=== PATIENT | female | born 1950 | race Caucasian/White ===

== ENCOUNTER → 2017-11-17 | Outpatient (CLI) | payer MEDICARE, OTHER ==
[~2017-11-17] MED LIST: Cleocin HCl150 MG PO; DIVA250EC PO; Fluticasone Pro15 GM; Keppra750 MG; OLAN5 SL; TRAZ150T57 PO
== END | disposition home or self-care (01) ==
LOC: LAB SHORT 13:16 → LAB EV 13:16
DX: L73.9 Follicular disorder, unspecified (principal)
CPT/HCPCS: 87070; 87205

== ENCOUNTER 2018-07-15 14:21 | Inpatient (IN) | payer MEDICARE, OTHER ==
[~2018-07-15] VITALS: Ht 157.5 cm; Wt 57.0 kg
[2018-07-15] MEDS ORDERED: DONE10 PO (14:39)
[2018-07-15] MEDS ORDERED: CITA20 PO (14:39)
[2018-07-15] MEDS ORDERED: OLAN10 PO (14:40)
[2018-07-15] MEDS ORDERED: TRAZ50 PO (14:40)
[2018-07-15 16:20] LABS: Source, Urine Catheter
[2018-07-15 16:24] LABS: Appearance, Urine Clear (Clear); Bilirubin, Urine Neg (Neg); Blood, Urine 1+ (Neg); Color, Urine Yellow (P-Yellow); Glucose Qualitative, Urine Neg (Neg); Ketones, Urine Neg (Neg); Leukocyte Esterase, Urine 2+ (Neg); Nitrite, Urine Neg (Neg); Protein, Urine 1+ (Neg); Urobilinogen, Urine NORM (Normal)
[2018-07-15 16:25] LABS: BASOPHILS ABSOLUTE AUTO 0.01 K/mm3 (0.00-0.23); BASOPHILS PERCENT AUTO 0 % (0-2); EOSINOPHILS PERCENT AUTO 0 % (0-6); Hematocrit 34.5 % (33.0-51.0); Hemoglobin 11.7 g/dL (11.5-16.0); IMMATURE GRAN ABSOLUTE AUTO 0.03 K/mm3 (0.00-0.10); IMMATURE GRAN PERCENT AUTO 1 % (0-1); LYMPHOCYTES PERCENT AUTO 13 % (21-46); MONOCYTES ABSOLUTE AUTO 0.78 K/mm3 (0.16-1.47); MONOCYTES PERCENT AUTO 12 % (4-13); Mean Corpuscular HGB 34.5 pg (26.0-34.0); Mean Corpuscular HGB Conc 33.9 g/dL (31.5-36.5); Mean Corpuscular Volume 102 fL (80-100); Mean Platelet Volume 10.7 fL (9.1-12.4); NEUTROPHILS ABSOLUTE AUTO 4.73 K/mm3 (1.96-9.15); NEUTROPHILS PERCENT AUTO 74 % (41-73); Platelet Count 161 K/mm3 (150-400); RDW Coefficient Variation 13.2 % (11.7-14.2); RDW Standard Deviation 49.9 fL (35.1-46.3); Red Blood Cell Count 3.39 M/mm3 (3.80-5.20); White Blood Cell Count 6.35 K/mm3 (4.00-11.30)
[2018-07-15 16:44] LABS: Alanine Aminotransfer (ALT/SGP 16 U/L (12-78); Albumin, Blood 2.9 g/dL (3.4-5.0); Alk Phos 40 U/L (50-136); Anion Gap 7 mmol/L (6-16); Aspartate Aminotrans (AST/SGOT 24 U/L (12-37); Bilirubin, Total 0.5 mg/dL (0.1-1.0); Blood Urea Nitrogen 17 mg/dL (8-24); Bun/Creatinine Ratio 26.3 (12.0-20.0); CO2, Blood 27 mmol/L (21-32); Calcium, Blood 8.3 mg/dL (8.5-10.1); Chloride, Blood 103 mmol/L (98-108); Creatinine, Blood 0.65 mg/dL (0.40-1.00); Globulin, Blood 2.8 g/dL (2.2-4.0); Glomerular Filtration Rate >60 (60-); Glucose, Blood 143 mg/dL (70-99); Potassium, Blood 3.9 mmol/L (3.5-5.5); Sodium, Blood 137 mmol/L (136-145); Total Protein, Blood 5.7 g/dL (6.4-8.2)
[2018-07-15 16:45] LABS: Bacteria Few /hpf; Squamous Epithelial Cells Few /hpf (Few); Transitional Epithelial Cells Few /hpf ({null, 0-Rare})
[2018-07-15] MEDS ORDERED: DIVA500ER PO (22:11)
--- NOTE | 2018-07-16 04:55 | NUR ---
SHIFT SUMMARY PT AWAKE ON/OFF T/O NIGHT & ATTEMPTING TO GET OOB, FOUND SITTING ON SIDE OF BED. BED ALARM ON. PT IS VERY CONFUSED, ALERT TO FAMLY & SELF ONLY. DOES NOT ANSWER QUESTIONS APPROPRIATELY OR FOLLOW DIRECTIONS. VSS. NO S/S SOB OR N/V. PT IS A 4/5 ON CNVI SCALE FOR GRIMACES, YELLING, RESTLESS & REPORTING PAIN IN R. LEG WHEN IT IS ASSISTED BACK INTO BED. MILLS IS PATENT & DRAININGE CLEAR YELLOW URINE. CALL LIGHT IS IN REACH & IS @BEDSIDE.
--- NOTE | 2018-07-16 17:40 | NUR ---
Initial Visit: Palliative Consult for POLST/AD and goals of care. Pt is A&O x 1 and is pleasantly confused. Her Jim present during visit. Pt does not appear to being experiencing pain at this time with a PAINAD score of 0/10. She appears relaxed with no signs of distress. Jim explains that Pt is of Baptist abbi and feels Pt would benefit from spiritual care. Pt lives at [facility] just moving to this facility 2 days ago. Pt was found on the floor by staff and taken to ED upon which a broken pelvis was identified. Jim reports the Pt has adequate support with the staff at home and himself. Discussed goals of care for Pt with Jim as her disease process takes her coarse. He explains his wishes for Pt to be a DNR with limited treatment. POLST for discussed and Jim is agreeable in competing form. Anwered questions and explained each section as he competed POLST. Jim reports only other concern is what the plan is for Pt. Instructed Jim plan will be based off of Hospitalist and physical therapy's recommendations. Physical therapy will determine if Pt should go to SNF for rehabilitation. Called and spoke Dr Mehta and informed him POLST form is complete. He reports that he will sign form in the AM. Spoke with Pt's nurse Stella and she reports no concerns at this time. Plan to remain available for therapeutic visits. Will place a spiritual care order for avian keeper visit.
--- NOTE | 2018-07-16 18:29 | NUR ---
PATIENT ONLY ORIENTED TO SELF AND . RADHA NARVAEZ FROM PALLIATIVE CARE CAME TO SPEAK WITH PATIENT AND FAMILY ABOUT PLST AND ADVANCED DIRECTIVES. PATIENT ATE ALL OF HER DINNER. WILL RETURN TONIGHT TO STAY WITH PATIENT. WORKING WELL WITH PHYSICAL THERAPY.
--- NOTE | 2018-07-17 04:13 | NUR ---
SHIFT SUMMARY PT SLEPT WELL T/O NIGHT W/ @BEDSIDE, ONLY SET BED ALARM OFF A COUPLE TIMES TONIGHT COMPARED TO LAST NIGHT. ALERT TO SELF & FAMILY, DOES NOT FOLLOW DIRECTIONS. DENIES PAIN YET SHOWS GRIMACING & YELLING WHEN R. LEG IS MOVED IN BED W/ASSISTANCE, MEDICATED 2X W/TYLENOL & TORODOL PER ORDERS. NO S/S OF SOB OR N/V. MILLS IS PATENT & DRAINING CLEAR NEIL URINE. CALL LIGHT IN REACH & BED IN LOWEST POSITION W/BED ALARM ON.
[2018-07-17 05:18] LABS: BASOPHILS ABSOLUTE AUTO 0.02 K/mm3 (0.00-0.23); BASOPHILS PERCENT AUTO 0 % (0-2); EOSINOPHILS ABSOLUTE AUTO 0.03 K/mm3 (0.00-0.68); EOSINOPHILS PERCENT AUTO 0 % (0-6); Hematocrit 31.7 % (33.0-51.0); Hemoglobin 10.4 g/dL (11.5-16.0); IMMATURE GRAN ABSOLUTE AUTO 0.03 K/mm3 (0.00-0.10); IMMATURE GRAN PERCENT AUTO 0 % (0-1); LYMPHOCYTES ABSOLUTE AUTO 0.99 K/mm3 (0.84-5.20); LYMPHOCYTES PERCENT AUTO 15 % (21-46); MONOCYTES ABSOLUTE AUTO 0.79 K/mm3 (0.16-1.47); MONOCYTES PERCENT AUTO 12 % (4-13); Mean Corpuscular HGB 33.4 pg (26.0-34.0); Mean Corpuscular HGB Conc 32.8 g/dL (31.5-36.5); Mean Corpuscular Volume 102 fL (80-100); Mean Platelet Volume 11.1 fL (9.1-12.4); NEUTROPHILS ABSOLUTE AUTO 4.91 K/mm3 (1.96-9.15); NEUTROPHILS PERCENT AUTO 73 % (41-73); Platelet Count 139 K/mm3 (150-400); RDW Coefficient Variation 13.5 % (11.7-14.2); RDW Standard Deviation 50.9 fL (35.1-46.3); Red Blood Cell Count 3.11 M/mm3 (3.80-5.20); White Blood Cell Count 6.77 K/mm3 (4.00-11.30)
[2018-07-17 05:44] LABS: Anion Gap 5 mmol/L (6-16); Blood Urea Nitrogen 19 mg/dL (8-24); Bun/Creatinine Ratio 33.3 (12.0-20.0); CO2, Blood 27 mmol/L (21-32); Calcium, Blood 7.6 mg/dL (8.5-10.1); Chloride, Blood 112 mmol/L (98-108); Creatinine, Blood 0.57 mg/dL (0.40-1.00); Glomerular Filtration Rate >60 (60-); Glucose, Blood 101 mg/dL (70-99); Potassium, Blood 3.6 mmol/L (3.5-5.5); Sodium, Blood 144 mmol/L (136-145)
--- NOTE | 2018-07-17 10:04 | NUR ---
I enetered patient's room and she greeted me with a big smile. Even after indroducing myself, patient was unclear as to who I was and why I was there. I asked her if she prayed to God and she said, "Yes." I asked her if she knew God loved her and she said, "Oh, yes," I asked asked her if I could pray for her and she said, "that would be great." I prayed and upon completion of the prayer she smiled and said, "Amen."
--- NOTE | 2018-07-17 17:03 | NUR ---
SHIFT SUMMARY- PT HAS HAD NO ACUTE CHANGES T/O THE SHIFT; AT THE URGING OF FAMILY PT SPOUSE HAS LEFT THE ROOM, HE STATED HE IS GOING OUT TO SOCIALIZE, HE FEELS VERY BAD ABOUT LEAVING THE PT SIDE, STATED HE WILL BE BACK TONIGHT ARROUND 10 PM. PT HAS CONSTANT TREMMORS THAT ARE MORE VISIBLE SOME TIMES THAN AT OTHERS. PT TOLD VISITORS THAT SHE WAS COLD AND THAT IS WHY SHE WAS SHAKING, CALLED MAINTANANCE TO TURN UP THE ROOM TEMP AND PROVIDED PT WITH ANOTHER WARM BLANKET. SPOKE TO DISCHARGE PLANNING, PLAN IS FOR PT TO RETURN TO [facility] UPON DISCHARGE. PT HAS DECLINED PAIN MEDICATION ALL SHIFT STATING SHE HAS NO PAIN.
[2018-07-18 05:19] LABS: Hematocrit 32.1 % (33.0-51.0); Hemoglobin 10.6 g/dL (11.5-16.0); Mean Corpuscular HGB 34.1 pg (26.0-34.0); Mean Corpuscular Volume 103 fL (80-100); Platelet Count 159 K/mm3 (150-400); RDW Coefficient Variation 13.3 % (11.7-14.2); RDW Standard Deviation 50.5 fL (35.1-46.3); Red Blood Cell Count 3.11 M/mm3 (3.80-5.20); White Blood Cell Count 7.75 K/mm3 (4.00-11.30)
--- NOTE | 2018-07-18 05:42 | NUR ---
SHIFT SUMMARY PT ORIENTED TO SELF. NOT GOOD AT FOLLOWING CUEING TO SWALLOW PILLS JUST HELD IN MOUTH. MULTIPLE ATTEMPTS TO GET OOB HERSELF. REORIENTED AND DIRECTED BACK INTO BED. SCREAMS OUT IN PAIN WHEN TURNING HER TO CLEAN HER UP FROM BM. MEDICATED PER EMAR X1. MILLS DRAINING. DOZED ON AND OFF T/O NOC. BED ALARM IN USE. DIDN'T SPEND THE WHOLE NIGHT SAYING HE "DIDN'T WANT TO SEE HER LIKE THIS". NO S/S OF PAIN EXCEPT WHEN TURNING TO CLEAN HER UP
--- NOTE | 2018-07-18 11:16 | NUR ---
ASSUMED CARE OF PT- *LATE ENTRY* PT SPOUSE WENT HOME IN THE MIDDLE OF THE NIGHT. PER REPORT FROM DYNAMITER HE STATED HE "CAN'T SEE HER LIKE THIS ANYMORE." PT SEEMS MORE AGITATED THIS MORNING WHEN COMPARED TO YESTERDAY. PT WAS TRANSFERED TO THE RECLINER EARLY IN THE MORNING PER HER REQUEST, SHE WAS SEARCHING FOR "ROBY" HER , ANYTIME SHE HEARS A MALE VOICE IT INCREASES HER AGITATION. CALLED DR MILES RECIEVED A NEW ORDER FOR IV ATIVAN AND HALDOL. ADMINISTERED THE LOWEST DOSE OF ATIVAN 0.5MG, IT APPEARS TO HAVE CALMED THE PT, TREMORS ARE REDUCED AND SHE NO LONGER APPEARS AGITATED. WILL CONTINUE TO MONITOR.
--- NOTE | 2018-07-18 14:06 | NUR ---
PHYSICAL THERAPY WORKED WITH THE PT- PT GOT TO THE EOB ON HER OWN AND STOOD WITH MINIMAL ASSIST FROM PHYSICAL THERAPY (PER REPORT) ONCE STANDING THE PT WAS NOT ABLE TO FOLLOW DIRECTIONS TO TTWB ON THE RIGHT LEG, SHE BECAME FRUSTRATED AND HEARD PEOPLE TALKING IN ANOTHER ROOM, THEN SHE DETERMINED THEY WERE SOMEONE SHE KNEW AND SHE NEEDED TO WALK OUT TO SEE THEM. UNABLE TO REDIRECT THE PT. PHYSICAL THERAPIST AND RN ASSISTED THE PT TO SIT AT THE EOB, SHE WAS CURSING AND IRRITATED. STAFF ASSISTED HER BACK TO LAYING IN THE BED WITH THE HOB ELEVATED AND THE PT IMEDIATELY QUIETED; CLOSED THE BLINDS AND TURNED OFF THE LIGHTS IN THE ROOM, FOR STIMULUS REDUCTION. TURNED ON MUSIC TO SOOTH, PT SEEMS CALM NOW. WILL CONTINUE TO MONITOR. PT HAS REPEATEDLY STATED T/O THE DAY NO PAIN.
--- NOTE | 2018-07-18 18:45 | NUR ---
SHIFT SUMMARY- PT JUST TRANSFERED BACK TO THE BED, SPOUSE AT THE BEDSIDE, PT CHANGED WELL. PLAN IS FOR PT TO DC BACK TO [facility] ON FRIDAY. PT STILL HAS IVF RUNNING AT 100ML/HR, MILLS PATENT AND DRAINING DARK NEIL URINE. PT PLEASENTLY CONFUSED AT THIS TIME. PT DENIES PAIN AT ALL TIMES T/O THE SHIFT. PT IS TTWB ON THE RIGHT SIDE, HOWEVER SHE DOES NOT SEEM TO UNDERSTAND INSTRUCTIONS TODAY.
--- NOTE | 2018-07-19 06:27 | NUR ---
SHIFT SUMMARY PT ORIENTED TO SELF ONLY. MUCH MORE CALM LAST NIGHT COMPARED TO THE PREVIOUS NIGHT. SLEPT SOUNDLY ONLY GETTING OOB ONCE LOOKING FOR HER . MILLS DRAINING. SHE WAS ABLE TO SLEEP THROUGH THE NIGHT. BED ALARM IN USE.
--- NOTE | 2018-07-19 19:41 | NUR ---
SHIFT SUMMARY- PT URINE OUTPUT HAS INCREASED AND THE PT HAS IVF RUNNING. SPOKE TO DR MILES THIS MORNING ABOUT DISCONTINUING THE IVF. REDUCED THE RATE TO 75ML/HR DC FLUIDS AT 0600 TOMORROW. PT PO INTAKE IS INCONSISTENT. PAIN MEDS REFUSED, PT DENIED PAIN ALL DAY LONG. PT CHANGED AND PLACED BACK INTO BED JUST BEFORE CHANGE OF SHIFT. SPOUSE AT THE BEDSIDE; HE PLANS TO GO HOME FOR THE NIGHT. PLAN IS FOR PT TO DC BACK TO [facility] TOMORROW WITH HOME HEALTH.
[2018-07-20 05:01] LABS: BASOPHILS ABSOLUTE AUTO 0.04 K/mm3 (0.00-0.23); BASOPHILS PERCENT AUTO 1 % (0-2); EOSINOPHILS ABSOLUTE AUTO 0.11 K/mm3 (0.00-0.68); EOSINOPHILS PERCENT AUTO 2 % (0-6); Hematocrit 31.9 % (33.0-51.0); Hemoglobin 10.8 g/dL (11.5-16.0); IMMATURE GRAN ABSOLUTE AUTO 0.02 K/mm3 (0.00-0.10); IMMATURE GRAN PERCENT AUTO 0 % (0-1); LYMPHOCYTES PERCENT AUTO 30 % (21-46); MONOCYTES ABSOLUTE AUTO 0.71 K/mm3 (0.16-1.47); MONOCYTES PERCENT AUTO 11 % (4-13); Mean Corpuscular HGB 34.7 pg (26.0-34.0); Mean Corpuscular HGB Conc 33.9 g/dL (31.5-36.5); Mean Corpuscular Volume 103 fL (80-100); Mean Platelet Volume 10.2 fL (9.1-12.4); NEUTROPHILS ABSOLUTE AUTO 3.53 K/mm3 (1.96-9.15); NEUTROPHILS PERCENT AUTO 56 % (41-73); Platelet Count 214 K/mm3 (150-400); RDW Coefficient Variation 13.4 % (11.7-14.2); RDW Standard Deviation 50.4 fL (35.1-46.3); Red Blood Cell Count 3.11 M/mm3 (3.80-5.20); White Blood Cell Count 6.31 K/mm3 (4.00-11.30)
[2018-07-20 05:19] LABS: Anion Gap 7 mmol/L (6-16); Blood Urea Nitrogen 8 mg/dL (8-24); Bun/Creatinine Ratio 17.2 (12.0-20.0); CO2, Blood 29 mmol/L (21-32); Calcium, Blood 7.9 mg/dL (8.5-10.1); Chloride, Blood 106 mmol/L (98-108); Creatinine, Blood 0.47 mg/dL (0.40-1.00); Glomerular Filtration Rate >60 (60-); Glucose, Blood 93 mg/dL (70-99); Potassium, Blood 3.3 mmol/L (3.5-5.5); Sodium, Blood 142 mmol/L (136-145)
--- NOTE | 2018-07-20 05:58 | NUR ---
SHIFT SUMMARY IV FLUIDS DC'D JUST BEFORE 0600 WHEN INFUSION WAS COMPLETE. PT DENIES PAIN. PT COOPERATES WITH NURSING STAFF PROVIDING CARE. PT HAS A HX OF BEING BRADYCARDIC, THIS IS HER BASELINE. FAMILY DECLINES PACEMAKER CONSULT. PT MAY DC TODAY TO [facility] IF NO CONCERNING CHANGE IN PHYSIOLOGICAL STATUS. MILLS CATHETER IS PATENT AND DRAINING. IV IS NOW SALINE LOCKED, FLUSHED WELL W/10ML NS. ROCEPHIN IV TX HAS BEEN DC'D 5 DAY TX HAS COMPLETED AND UTI IS RESOLVED. HCT, HGB, AND RBC ARE TRENDING DOWN (SEE LABS). WILL CONTINUE TO MONITOR.
[2018-07-20] MEDS ORDERED: ACET325 PO (12:46)
[2018-07-20] MEDS ORDERED: ASCO500 PO (12:47)
[2018-07-20] MEDS ORDERED: CALCIUM 500 +1 EAC3 PO (12:51)
[2018-07-20] MEDS ORDERED: FERSU90EL PO (12:53)
[2018-07-20] MEDS ORDERED: IBUP400 PO (12:55)
[2018-07-20] MEDS ORDERED: ONDA4 PO (12:56)
[2018-07-20] MEDS ORDERED: TRAM50 PO (12:57)
--- NOTE | 2018-07-20 14:29 | NUR ---
PATIENT DISCHARGE THE PATIENT WAS DISCHARGED TO [facility] AT THE SPOUSES REQUEST. THE PATIENT WAS TRANSPORTED TO [facility] VIA AMBULANCE AFTER REPORT WAS GIVEN TO BEN REEVES.
== END 2018-07-20 14:32 | DRG 536 ==
LOC: ER 14:21 → MEDS 17:13 → ENPENDDIS 07-20 14:29 → MEDS 07-20 14:32
PROVIDERS: Emergency Medicine; Family Medicine; ADMIT Family Medicine
DX: S32.512A Fracture of superior rim of left pubis, initial encounter for closed fracture (principal); S32.19XA Other fracture of sacrum, initial encounter for closed fracture; N39.0 Urinary tract infection, site not specified; F33.9 Major depressive disorder, recurrent, unspecified; W19.XXXA Unspecified fall, initial encounter; G30.9 Alzheimer's disease, unspecified; F02.80 Dementia in other diseases classified elsewhere, unspecified severity, without behavioral disturbance, psychotic disturbance, mood disturbance, and anxiety; R00.1 Bradycardia, unspecified; I95.9 Hypotension, unspecified
CPT/HCPCS: 36415; 51702; 72192; 73502; 80048; 80053; 81001; 85025; 85027; 87086; 90686; 93005; 93010; 96365; 96375; 97110; 97162; 97530; 99285-25; J0696; J1650; J1885; J2060; J3010; J7030

== ENCOUNTER 2018-07-28 16:49 | Inpatient (IN) | payer MEDICARE, OTHER ==
[~2018-07-28] VITALS: Ht 162.6 cm; Wt 62.2 kg
[~2018-07-28 16:49] MED LIST changes: +ACET325 PO; +ASCO500 PO; +CALCIUM 500 +1 EAC3 PO; +CITA20 PO; +DIVA500ER PO; +DONE10 PO; +FERSU90EL PO; +IBUP400 PO; +OLAN10 PO; +ONDA4 PO; +TRAM50 PO; +TRAZ50 PO
[2018-07-28 17:36] LABS: BASOPHILS ABSOLUTE AUTO 0.03 K/mm3 (0.00-0.23); BASOPHILS PERCENT AUTO 0 % (0-2); EOSINOPHILS PERCENT AUTO 0 % (0-6); Hematocrit 33.1 % (33.0-51.0); Hemoglobin 10.5 g/dL (11.5-16.0); IMMATURE GRAN ABSOLUTE AUTO 0.07 K/mm3 (0.00-0.10); IMMATURE GRAN PERCENT AUTO 1 % (0-1); LYMPHOCYTES PERCENT AUTO 11 % (21-46); MONOCYTES ABSOLUTE AUTO 0.79 K/mm3 (0.16-1.47); MONOCYTES PERCENT AUTO 9 % (4-13); Mean Corpuscular HGB 33.9 pg (26.0-34.0); Mean Corpuscular HGB Conc 31.7 g/dL (31.5-36.5); Mean Platelet Volume 10.3 fL (9.1-12.4); NEUTROPHILS ABSOLUTE AUTO 7.42 K/mm3 (1.96-9.15); NEUTROPHILS PERCENT AUTO 80 % (41-73); Platelet Count 201 K/mm3 (150-400); RDW Coefficient Variation 14.6 % (11.7-14.2); White Blood Cell Count 9.31 K/mm3 (4.00-11.30)
[2018-07-28 17:40] LABS: Calcium, Ionized (POC) 0.98 mmol/L (1.10-1.46); Chloride (POC) 109 mmol/L (98-108); Creatinine (POC) 7.9 mg/dL (0.6-1.0); Glucose (ISTAT POC) 118 mg/dL (70-99); Hemoglobin (POC) 11.2 g/dL (12.0-16.0); Potassium (POC) 5.6 mmol/L (3.5-5.5); Sodium (POC) 143 mmol/L (135-148); Total CO2 (POC) 19 mmol/L (21-32)
[2018-07-28 17:47] LABS: Mean Corpuscular Volume 107 fL (80-100)
[2018-07-28 17:50] LABS: International Normalized Ratio 1.04
[2018-07-28 18:21] LABS: Albumin, Blood 2.2 g/dL (3.4-5.0); Albumin/Globulin Ratio 0.5 (0.8-1.8); Bilirubin, Total 0.4 mg/dL (0.1-1.0); Bun/Creatinine Ratio 20.1 (12.0-20.0); Calcium, Blood 8.1 mg/dL (8.5-10.1); Creatinine, Blood 7.51 mg/dL (0.40-1.00); Globulin, Blood 4.2 g/dL (2.2-4.0); Potassium, Blood 5.7 mmol/L (3.5-5.5); Total Protein, Blood 6.4 g/dL (6.4-8.2)
[2018-07-28] MEDS ORDERED: TRAZ50 PO (22:39)
[2018-07-28 22:44] LABS: Hematocrit 32.8 % (33.0-51.0); Hemoglobin 10.5 g/dL (11.5-16.0)
[2018-07-28 23:07] LABS: CPK Creatine Kinase 155 U/L (26-193); Magnesium, Blood 3.6 mg/dL (1.6-2.4); Valproic Acid 86.5 ug/mL (50.0-100.0)
[2018-07-28 23:17] LABS: Phosphorus, Blood 5.6 mg/dL (2.5-4.9)
[2018-07-29 04:55] LABS: Hematocrit 33.1 % (33.0-51.0); Hemoglobin 10.3 g/dL (11.5-16.0)
[2018-07-29 05:17] LABS: Magnesium, Blood 3.6 mg/dL (1.6-2.4)
[2018-07-29 05:30] LABS: Albumin/Globulin Ratio 0.5 (0.8-1.8); Bilirubin, Total 0.5 mg/dL (0.1-1.0); Bun/Creatinine Ratio 30.8 (12.0-20.0); Creatinine, Blood 3.57 mg/dL (0.40-1.00); Globulin, Blood 4.1 g/dL (2.2-4.0); Total Protein, Blood 6.1 g/dL (6.4-8.2)
--- NOTE | 2018-07-29 06:22 | NUR ---
SHIFT SUMMARY PT ONLY RESPONDS TO PAINFUL STIMULI. PT DIFFICULT TO UNDERSTAND. SPEECH IS GARBLED. PT HAS HX OF LATE DEMENTIA AND IS CONFUSED AT BASELINE. PT HAS NOT HAD BM SINCE SHE WAS ADMITTED TO THE FLOOR. PER REPORT PT HAD GELATIN DARK RED STOOL. PT GRIMMACES DURING REPOSITIONING, BUT OTHER THAN MOVEMENT SHOWS NO SIGNS OF PAIN. HR IS SB WITH A RATE INTHE 50-60'S. MILLS PATENT AND DRAINING. PT REPOSITIONED Q2H. VS STABLE. WILL CONTINUE TO MONITOR AND REPORT TO ONCOMING RN. CALL LIGHT IN REACH.
--- NOTE | 2018-07-29 08:20 | NUR ---
INITIAL ASSESSMENT: Pt lying in bed. Does not respond to verbal stimulus or touch. Only resonds to painful stimulus. Pt stated "ouch" and had garbaled speech with sternal rub. Pt did open her L eye slightly. R eye was opened by RN, both pupils sluggish. Oral care attempted but pt gritted teeth shut. Does not follow directions or commands. VSS. Bed alarm on and Call light in reach. Will Continue to monitor.
[2018-07-29 08:48] LABS: Source, Urine Catheter
[2018-07-29 08:52] LABS: Bilirubin, Urine Neg (Neg); Blood, Urine 4+ (Neg); Glucose Qualitative, Urine Neg (Neg); Ketones, Urine Neg (Neg); Leukocyte Esterase, Urine 3+ (Neg); Nitrite, Urine Neg (Neg); Protein, Urine 2+ (Neg); Urobilinogen, Urine NORM (Normal)
[2018-07-29 08:53] LABS: Appearance, Urine Hazy (Clear); Color, Urine Yellow (P-Yellow)
[2018-07-29 09:11] LABS: Red Blood Cells, Urine 50-100 /hpf (0-2); White Blood Cells, Urine TNTC /hpf (0-5)
[2018-07-29 09:12] LABS: Bacteria Mod /hpf; Mucus Light (0-Heavy); Squamous Epithelial Cells Few /hpf (Few)
[2018-07-29 14:14] LABS: Hematocrit 31.7 % (33.0-51.0); Hemoglobin 10.1 g/dL (11.5-16.0)
[2018-07-29 14:28] LABS: Albumin, Blood 2.1 g/dL (3.4-5.0); Anion Gap 10 mmol/L (6-16); Blood Urea Nitrogen 87 mg/dL (8-24); Bun/Creatinine Ratio 43.3 (12.0-20.0); CO2, Blood 24 mmol/L (21-32); Calcium, Blood 8.1 mg/dL (8.5-10.1); Chloride, Blood 119 mmol/L (98-108); Creatinine, Blood 2.01 mg/dL (0.40-1.00); Glomerular Filtration Rate 26 (60-); Glucose, Blood 116 mg/dL (70-99); Phosphorus, Blood 3.3 mg/dL (2.5-4.9); Potassium, Blood 3.4 mmol/L (3.5-5.5); Sodium, Blood 153 mmol/L (136-145)
--- NOTE | 2018-07-29 18:23 | NUR ---
shift summary: Pt laying in bed at this time. Seems to have become slightly more alert throughout the shift, but very disoriented. Pt has hx of dementia. Pt sleeps until woken up by touch. When pt is repositioned she yells out non-sinsical words. Pt does not follow directions. Pt had small, black unformed loose stool at end of shift that had GI bleed smell. Mepalex dressing on coccyx clean and intact. HR has remained in NSR this shift. IVF running per orders and protinix gtt running per orders. Swelling to LLE shows no changes this shift. See imaging report for LLE ultrasound results. has been in Pt's room most of the shift. He denies questions. will report to night rn.
[2018-07-29 18:53] LABS: Hematocrit 29.1 % (33.0-51.0); Hemoglobin 9.4 g/dL (11.5-16.0)
[2018-07-29 23:38] LABS: Stool Occult Blood Guaiac 1 Pos (Neg)
--- NOTE | 2018-07-30 05:01 | NUR ---
SHIFT SUMMARY PT LETHARGIC, DIFFICULT TO AROUSE, WAKES TO PAINFUL STIMULI AND ASKS "WHY" WHEN TRYING TO WAKE PT FOR ASSESSMENTS. PT FULLY WAKES DURING Q2H REPOSITIONG AND YELLS OUT CURSE WORDS THEN QUICKLY QUIETS AND RETURNS TO SLEEPING. MONITOR SHOWS SB/NSR, HR 40'S-60'S THIS SHIFT. LUNG SOUNDS CLEAR, DIM IN BASES. SPO2 > 92% ON RA. VSS. MILLS PATENT AND DRAINING CLEAR YELLOW URINE. ATTENDS IN PLACE FOR INCONTINENT STOOL. ONE BROWN UNFORMED SMEAR THIS SHIFT. ROBSON CARE AND ATTENDS CHANGE PROVIDED. PT COCCYX RED, MEPILEX IN PLACE, OTHERWISE SKIN C/D/I. PT'S L LEG SWOLLEN T/O FROM THIGH DOWN TO TOES. 2 PIV'S. PROTONIX GTT AND D5W GTT INFUSING PER ORDERS. BED IN LOWEST POSITION, SIDE RAILS UP X2, CALL LIGHT IN REACH. BED ALARM ON. WILL CONTINUE TO MONITOR AND PROVIDE CARE UNTIL REPORT OFF TO DAY SHIFT RN.
[2018-07-30 09:04] LABS: Hematocrit 31.5 % (33.0-51.0); Hemoglobin 9.9 g/dL (11.5-16.0); Mean Corpuscular HGB Conc 31.4 g/dL (31.5-36.5); Mean Corpuscular Volume 108 fL (80-100); Mean Platelet Volume 10.4 fL (9.1-12.4); Platelet Count 142 K/mm3 (150-400); RDW Coefficient Variation 14.2 % (11.7-14.2); RDW Standard Deviation 56.4 fL (35.1-46.3); Red Blood Cell Count 2.91 M/mm3 (3.80-5.20)
[2018-07-30 09:27] LABS: Anion Gap 7 mmol/L (6-16); Blood Urea Nitrogen 53 mg/dL (8-24); Bun/Creatinine Ratio 53.5 (12.0-20.0); CO2, Blood 27 mmol/L (21-32); Calcium, Blood 8.1 mg/dL (8.5-10.1); Chloride, Blood 116 mmol/L (98-108); Creatinine, Blood 0.99 mg/dL (0.40-1.00); Glomerular Filtration Rate 59 (60-); Glucose, Blood 116 mg/dL (70-99); Potassium, Blood 3.2 mmol/L (3.5-5.5); Sodium, Blood 150 mmol/L (136-145)
--- NOTE | 2018-07-30 10:11 | NUR ---
Assumed Care: Assumed care of pt at approx 0700. VSS. In no apparent sign of distress, but pt does appear very ill. Pt is very lethargic and responds to painful stimuli only. at bedside and states that the pt is confused at baseline. Pt does not respond to questions, and mumbles at times. Pt requiring full care at this time. See shift assessment for detailed assessment. Dr. Amado at bedside this AM, and provided update and potential prognosis of pt to . Palliative care on board. Pt currently resting in bed with call light within reach. Pt does not have any apparent unmet needs at this time. Will continue to monitor.
--- NOTE | 2018-07-30 15:06 | NUR ---
Pt gone now to and accompanied by HC RN.
--- NOTE | 2018-07-30 15:09 | NUR ---
Spiritual care visit conducted. Patient was sleeping in bed but her Jim was present and quickly wlked me outside the room because he wanted to talk in private. Jim explained patient's medical history and abbi history and the procedure that was forthcoming. Jim explained the pain that was connected to making medical decisions and what he saw the goals were. I listened empathically, normalized patient's experience and affirmed his goals and thought process regarding his 's care. As we were talking his was being preped to go for surgery. I provided a hug and a prayer as they left. Jim thanked me.
--- NOTE | 2018-07-30 17:01 | NUR ---
Shift Summary Pt now returned from and has two venous groin sites that do not show any s/sx of bleed or hematoma. No changes in mentation and no significant changes since initial shift assessment. Two IVC filters placed to LLE. Pt turned approx every two hours while in the room. Dr. Saeed at bedside after pt returned from and plan is to possibly scope if electrolytes stabalize more. Pt currently resting in bed with call light within reach. Family at bedside. Denies any further questions, complaints or requests at this time. Will continue to monitor until report is given to иван CONTRERAS.
--- NOTE | 2018-07-30 18:53 | NUR ---
Asked by RN to meet with dtr at bedside. She was tearful and expressed understanding of pt's dire medical state. She was deeply appreciative of prayer and spiritual counselor marriage and family. She asked me to meet with her father in [facility] waiting area. Spouse, Jim, had just spent time in prayer with family residential caregiver. He expressed a deep and complete abbi in the goodness of God. Jim feels well-supported by his residential caregiver and latter-day family. That said, spouse and family desires continued spiritual support. Advised chaplains are always available.
[2018-07-31 04:05] LABS: Hematocrit 33.8 % (33.0-51.0); Hemoglobin 10.4 g/dL (11.5-16.0); Mean Corpuscular HGB 34.1 pg (26.0-34.0); Mean Corpuscular HGB Conc 30.8 g/dL (31.5-36.5); Platelet Count 101 K/mm3 (150-400); RDW Coefficient Variation 14.2 % (11.7-14.2); RDW Standard Deviation 58.2 fL (35.1-46.3); Red Blood Cell Count 3.05 M/mm3 (3.80-5.20)
[2018-07-31 04:06] LABS: Mean Corpuscular Volume 111 fL (80-100)
[2018-07-31 04:25] LABS: Anion Gap 7 mmol/L (6-16); Blood Urea Nitrogen 34 mg/dL (8-24); Bun/Creatinine Ratio 44.7 (12.0-20.0); CO2, Blood 29 mmol/L (21-32); Chloride, Blood 114 mmol/L (98-108); Creatinine, Blood 0.76 mg/dL (0.40-1.00); Glomerular Filtration Rate >60 (60-); Glucose, Blood 93 mg/dL (70-99); Phosphorus, Blood 2.2 mg/dL (2.5-4.9); Potassium, Blood 3.7 mmol/L (3.5-5.5); Sodium, Blood 150 mmol/L (136-145)
--- NOTE | 2018-07-31 05:02 | NUR ---
SHIFT SUMMARY PT CONTINUES TO BE LETHARGIC, WAKES TO PAINFUL STIMULI, OPENING L EYE ONLY. PT ON BEDREST, CRIES OUT W/ Q2H REPOSITIONING, OTHERWISE CALM AND QUIET. LUNG SOUNDS CLEAR T/O, SPO2 > 92% ON RA. MONITOR SHOWS SB, HR 40'S-60'S. MILLS CATH PATENT AND DRAINING CLEAR YELLOW URINE. L LEG DVT. 2 PINPOINT SURGICAL SITES FOR IVC FILTER PLACEMENT WNL. D5 GTT CONTINUES TO INFUSE PER ORDERS. WILL CONTINUE TO MONITOR AND PROVIDE CARE UNTIL REPORT OFF TO DAY SHIFT RN.
--- NOTE | 2018-07-31 08:08 | NUR ---
Assumed Care: Assumed care of pt at approx 0700. VSS. In no apparent sign of distress. Pt is now responding to verbal stimuli, but is still very lethargic. Requiring full care. Confused. See shift assessment for detailed assessment. No family at bedside at this time. Pt currently resting in bed with call light within reach. Will continue to monitor.
--- NOTE | 2018-07-31 11:37 | NUR ---
Spiritual care visit conducted. Patient was resting comfortably when I entered the room. Patient's , Jim, led me outside the patient's room into the hallway to talk. Since therapeutic alliance was already established in a prior visit, Jim shared what he understood from a medical standpoint about his 's condition and his concerns for best care for her. He also shared his personal struggles as well as the strength and hope connected to his abbi. I listened empthaically, provided guidance on how to most be able to reach his goals for his 's care, I reinforced helpful attitudes and practices, I provided pastoral direction and prayer. Patient's responded well to all intervention and showed signs of elevated peace and renwed abbi.
--- NOTE | 2018-07-31 18:41 | NUR ---
Shift Summary No acute changes since initial shift assessment. VSS. In no apparent sign of distress. No changes in mentation. Plan is for pt to have an EEG done tomorrow. No s/sx of pain or discomfort. No changes to groin sites. Pt has been turned approx Q2H. Pt has had an uneventful day. Pt currently resting in bed with call light within reach. Denies any further questions, complaints or requests at this time. Will continue to monitor until report is given to иван CONTRERAS.
--- NOTE | 2018-07-31 19:30 | NUR ---
ASSUMED CARE PT SLEEPING IN ROOM COMFORTABLY. REPORT FROM DAY SHIFT IS PT DOES NOT RESPOND MUCH TO VERBAL STIMULI. IS MOSTLY NONVERBAL, UNLESS BEING REPOSITIONED. PT IS SET TO HAVE EEG TOMORROW MORNING. HAIR HAS BEEN WASHED AND IS AIR DRYING. RESP EVEN UNLABORED ON RA. PT HAD RECENT PELVIC FX, AND IS Q2H TURNS. SKIW IN PWD. ORAL CARE HAS BEEN PERFORMED. MILLS IN PLACE, PATENT AND DRAINING CLEAR YELLOW URINE. IVF INFUDING IN PIV. CALL LIGHT IS WITHIN REACH. BED ALARM ON FOR SAFETY.
[2018-08-01 05:22] LABS: Hematocrit 28.7 % (33.0-51.0); Hemoglobin 9.1 g/dL (11.5-16.0); Mean Corpuscular HGB 34.1 pg (26.0-34.0); Mean Corpuscular HGB Conc 31.7 g/dL (31.5-36.5); Mean Platelet Volume 11.1 fL (9.1-12.4); NRBC ABSOLUTE 0.03 K/mm3 (0.00-0.02); NRBC Auto 0.3 /100 WBC (0.0-0.2); Platelet Count 115 K/mm3 (150-400); RDW Coefficient Variation 13.8 % (11.7-14.2); RDW Standard Deviation 55.2 fL (35.1-46.3); Red Blood Cell Count 2.67 M/mm3 (3.80-5.20)
[2018-08-01 05:23] LABS: Mean Corpuscular Volume 108 fL (80-100)
[2018-08-01 05:40] LABS: Anion Gap 6 mmol/L (6-16); Blood Urea Nitrogen 17 mg/dL (8-24); Bun/Creatinine Ratio 29.5 (12.0-20.0); CO2, Blood 30 mmol/L (21-32); Calcium, Blood 7.8 mg/dL (8.5-10.1); Chloride, Blood 109 mmol/L (98-108); Creatinine, Blood 0.58 mg/dL (0.40-1.00); Glomerular Filtration Rate >60 (60-); Glucose, Blood 94 mg/dL (70-99); Potassium, Blood 3.5 mmol/L (3.5-5.5); Sodium, Blood 145 mmol/L (136-145)
[2018-08-01 05:44] LABS: BAND PERCENT MAN 5 % (0-8); BASOPHILS ABSOLUTE MAN 0.08 K/mm3 (0.00-0.23); BASOPHILS PERCENT MAN 1 % (0-2); EOSINOPHILS ABSOLUTE MAN 0.26 K/mm3 (0.00-0.68); EOSINOPHILS PERCENT MAN 3 % (0-6); LYMPHOCYTES ABSOLUTE MAN 1.32 K/mm3 (0.84-5.20); LYMPHOCYTES PERCENT MAN 15 % (21-46); MONOCYTES ABSOLUTE MAN 0.96 K/mm3 (0.16-1.47); MONOCYTES PERCENT MAN 11 % (4-13); MYELOCYTE ABSOLUTE MAN 0.26 K/mm3 (0.00-0.00); MYELOCYTE PERCENT MAN 3 % (0-0); NEUTROPHILS ABSOLUTE MAN 5.89 K/mm3 (1.96-9.15); SEG NEUTROPHILS PERCENT MAN 62 % (41-73); TOTAL CELLS COUNTED 100
--- NOTE | 2018-08-01 05:46 | NUR ---
SHIFT SUMMARY PT SLEEPING IN ROOM. NO ACUTE CHANGES SINCE ASSESSMENT. PT HAS HAD NO BM T/O SHIFT. MILLS IN PLACE DRAINING CLEAR YELLOW URINE. IVF INFUSING IN PIV. RESP EVEN UNLABORED ON RA. PT DOES NOT WAKE WITH VERBAL OFTEN. VERY LETHARGIC. CALL LIGHT IS IN REACH OF PT. BED ALARM ON FOR SAFETY.
--- NOTE | 2018-08-01 15:02 | NUR ---
PATIENT HAS BEEN MOSTLY NONVERBAL DURING THIS SHIFT. AT THE BEDSIDE DURING BREAKFAST AND LUNCH. PATIENT PAINFUL WHEN ROLLING DURING HER BEDBATH BUT OTHERWISE APPEARS FREE OF PAIN OR DISCOMFORT. PLACED ON CLINIMIX PER DIETARY. NPO AT THIS TIME. NEW MEPLEX PLACED ON COCCYX DURING BEDBATH. SKIN IS PINK UNDERNEATH BUT IS HEALING WITH NO DRAINAGE. PATIENT REFUSING ORAL CARE THOUGH IT HAS BEEN ATTEMPTED. BED ALARM IN PLACE.
--- NOTE | 2018-08-01 19:15 | NUR ---
ASSUMED CARE PT SLEEPING IN ROOM COMFORTABLY. PER DAY SHIFT NO ACUTE CHANGES IN STATUS SINCE PREVIOUS NIGHT. PT REMAINS NONVERBAL EXCEPT DURING REPOSITIONING. DAY SHIFT REPORTED SMALL SMEAR BM. PT HAS CLINIMIX AND LIPIDS INFUSING THROUGH PIV. RESP EVEN UNLABORED ON RA. SKIN IS PWD. PT HAD FULL BED BATH DURING DAY SHIFT. CALL LIGHT IS WITHIN REACH OF PT. BED ALARM ON FOR SAFETY.
[2018-08-02 04:31] LABS: Anion Gap 7 mmol/L (6-16); Blood Urea Nitrogen 16 mg/dL (8-24); Bun/Creatinine Ratio 36.8 (12.0-20.0); CO2, Blood 29 mmol/L (21-32); Calcium, Blood 7.6 mg/dL (8.5-10.1); Chloride, Blood 107 mmol/L (98-108); Creatinine, Blood 0.44 mg/dL (0.40-1.00); Glomerular Filtration Rate >60 (60-); Glucose, Blood 110 mg/dL (70-99); Magnesium, Blood 1.8 mg/dL (1.6-2.4); Phosphorus, Blood 2.3 mg/dL (2.5-4.9); Potassium, Blood 3.5 mmol/L (3.5-5.5); Sodium, Blood 143 mmol/L (136-145)
--- NOTE | 2018-08-02 06:01 | NUR ---
SHIFT SUMMARY PT SLEEPING IN ROOM. NO ACUTE CHANGES I STATUS SINCE ASSESSMENT. CLINIMAX INFUSING IN PIV. RESP EVEN UNLBAORED ON RA. SKIN IS PWD. PT CONTINUES TO REFUSE ORAL CARE. CONTINUES TO BE NONVERBAL, ONLY MOANING WITH GARBLED SPEECH ON REPOSITIONING. MILLS CATH IN PLACE PATENT AND DRAINING CLEAR YELLOW URINE. CALL LIGHT IS IN REACH. BED ALARM ON FOR SAFETY.
--- NOTE | 2018-08-02 07:20 | NUR ---
NURSING PCU DAYSHIFT: Assumed care of pt at approx 0700. Lethargic, only noted response to physical stimuli was the opening of the left eye, pupils sluggish, unable to track. No movement noted of any extremeties w/stimulation this a.m. Non-verbal at initial assessment. Skin is fragile, reddened area documented to coccyx, b/l groin sites w/dressings in place. Tele in place, SR/SB w/PAC's, SBP 130's, 3+ LLE edema. L/S cta t/o, O2 sat 97% on RA, no noted cough. Abd SNT, BT+, FC w/stat lock in place and draining well. PIV x2, clinimix infusing at 75cc/hr. Plan to continue closely monitoring pt's neuro status, EEG scheduled for tomorrow morning. Awaiting rounding from PMD. Frequent rounding required d/t pt's inability to express needs or discomfort, no noted needs at this time. Cont to monitor for changes.
--- NOTE | 2018-08-02 17:33 | NUR ---
NURSING PCU DAYSHIFT SUMMARY: No acute changes t/o the shift. VS have remained stable, respiratory and cardiac status unchanged. Pt has remained nonverbal other than when repositioning at which time pt stated, "guerda, jose, jt". After expressing to the pt that she was doing a good job, she stated, "I bet I did." Has had no other verbalization t/o the shift, does not follow commands. Seen by PMD this a.m. new d/o received. PPN started this evening, pt appears to be tolerating fluids well. Maintainted Q2 hr repositioning. No s/s of acute distress at this time, cont to monitor until rpt is given to NOC RN.
[2018-08-03 04:28] LABS: Magnesium, Blood 1.9 mg/dL (1.6-2.4); Phosphorus, Blood 2.6 mg/dL (2.5-4.9)
--- NOTE | 2018-08-03 06:00 | NUR ---
SHIFT SUMMARY. NON RESPONSIVE UNLESS IRRITABLE STIMULI. TURNING , WASHING HAIR. AND ROBSON CARE. SEEMS TO HAVE SOME GROSS MOTOR MOVEMENT UPPER EXTREMITIES.PUFFY ARMS/FINGERS. WILL NOT FOLLOW ANY COMMANDS. ANASARCA. AND HUGE EDEMATOUS LT LEG. PERL2/2. EXTREMEE BITING OG TOOTH BRUSH AND DID NOT LET GO OF HARD PLASTIC TOOTH BRUSH FOR ABOUT 30 MIN. VERY CLEAR STATEMENTS MADE WHEN FRUSTRATED AND ANNOYED. " SHUT UP " AND FOUL WORDS OVER AND OVER. " I HATE YOUR GUTS " OVER AND OVER FOR A FEW MINUTES UNTIL LEFT ALONE/ SB / SR LOWEST 48 TONIGHT. NO SEISURE ACTIVITY NOTED ALL NOC.
[2018-08-03 09:35] LABS: Hematocrit 31.3 % (33.0-51.0); Mean Corpuscular HGB 34.2 pg (26.0-34.0); Mean Corpuscular HGB Conc 31.9 g/dL (31.5-36.5); Mean Corpuscular Volume 107 fL (80-100); Mean Platelet Volume 11.6 fL (9.1-12.4); Platelet Count 200 K/mm3 (150-400); RDW Coefficient Variation 13.7 % (11.7-14.2); RDW Standard Deviation 53.3 fL (35.1-46.3); Red Blood Cell Count 2.92 M/mm3 (3.80-5.20); White Blood Cell Count 11.75 K/mm3 (4.00-11.30)
--- NOTE | 2018-08-03 11:14 | NUR ---
Assumed Care: Assumed care of pt at approx 0700. VSS. In no apparent sign of distress. No s/sx of pain at rest, but pt does call out in pain with repositioning. See shift assessment for detailed assessment. Pt currently getting EEG done and plan is for EGD later today. Minimal changes in mentation noted. Pt is currently resting in bed with call light within reach. denies any further questions, complaints or requests at this time. Will continue to monitor.
--- NOTE | 2018-08-03 14:59 | NUR ---
RECEIVED TO ROOM 344 AT 1350. HER EYES ARE OPEN STARING INTO SPACE. SHE DOES NOT LOOK AT ME OR FOLOW ANY INSTRUCTIONS. HER EXPRESSION LOOKS LIKE A GRIMACE. PPN IS INFUSING INTO RAC 20G SITE. PAS WRAP RESUMED TO R LEG. L SWOLLEN LEG ELEVATED ON 1 PILLOW. FOB RAISED. WHEN I MOVED HER RIGHT LEG, SHE SCREAMED. EDEMA PRESENT IN BOTH ARMS/HANDS. BOTH GROINS HAVE SMALL TEGADERM DRESSINGS IN PLACE. SHE IS NPO. SHE HAS AN EGD SCHEDULED FOR LATER THIS AFTERNOON. MILLS CATHETER IS PATENT.
--- NOTE | 2018-08-03 15:38 | NUR ---
Spiritual care visit conducted. Patient was lying in bed with eyes open but not resposive when I entered the room. Patient's , Jim, was in the room and walked me outside the room so we could talk without the patient hearing. Since therapeutic alliance is already established Jim immediately shared patient updates on her medical condition and the steps he is weighing through in her care. Jim admitted his fatique and his emotional depletion. I listened empathically, quoted inspiring words from the Bible that are in line with his belief system, encouraged self-care, provided pastoral advice and prayer. Jim teared up during the prayer and then hugged me at the prayer's conclusion. Patient expressed gratitude for my time and care.
--- NOTE | 2018-08-03 15:53 | NUR ---
20G TO LT AC PATENT
--- NOTE | 2018-08-03 15:59 | NUR ---
TO DAY SURGERY AT 1545 FOR EGD. HER IS WITH HER FOR CONSENT. HER ROBY JUST CONFERENCED WITH PALLIATIVE CARE NURSE. HE SAYS HE WANTS THE EGD, THEN PLANS COMFORT CARE AND HOSPICE.
--- NOTE | 2018-08-03 16:00 | NUR ---
PT IS CALM AT THIS TIME NOT SCREAMING. HAS BEEN ABLE TO ANSWER HEALTH HX QUESTIONS FOR PT. MD HAS HAD SIGN PAPERS FOR PT. PT IS STABLE AT THIS TIME. NO NEW ORDERS GIVEN. WILL CONTINUE TO MONITOR PT
--- NOTE | 2018-08-03 16:03 | NUR ---
Initial Visit: Palliative Care Consult for goals of care. Pt visit this afternoon. Pt is confused and agitated. Her Jim is present during visit. Engaged in therapeutic conversation about goals of care for Pt. Jim begins to talk about how he no longer wants the Pt to suffer. Discussed disease process and comfort measures. Educated Jim on comfort measures and hospice philosophy and he is agreeable for this goal. Spoke with Pt's nurse Marlen and she is agreeable for this plan. Called and spoke with Dr Lowe and he is agreeable for comfort measures and home with hospice. Received V/O from Dr Lowe to place order set for comfort measures. Will also place social service consult for hospice referral.
--- NOTE | 2018-08-03 16:13 | NUR ---
08/03/18 1613 Timo Bright 3-LEAD EKG REVIEWED WITH PHYSICIAN PRIOR TO START OF PROCEDURE.PATIENT CONFIRMS NPO STATUS AND AGREES WITH SCHEDULED PROCEDURE/FAMILY. History, Chart, Medications and Allergies reviewed before start of procedure.Bite Block Placed
--- NOTE | 2018-08-03 16:54 | NUR ---
D/C MAINTENENCE MEDICATIONS PER V/O FROM DR BRIGHT. CONTINUED WITH IV SEIZURE MEDICATIONS FOR COMFORT AND WILL DISCUSS WITH HOSPITALIST OF WHETHER MEDICATIONS SHOULD BE CONTINUED WHEN TRANSITIONING TO HOSPICE PO OR RECTAL.
--- NOTE | 2018-08-03 16:57 | NUR ---
PT VERY SLEEPY, WAITING FOR INCREASED WAKEFULNESS, DR GREEN AT BEDSIDE T/O STEP TIME.
--- NOTE | 2018-08-03 19:24 | NUR ---
SHE RETURNED FROM DAY SURGERY ABOUT 174. SHE WAS SLEEPING. BP REMAINED LOW, BIOX LOW. O2 PUT ON AT 2L. WHEN BIOX WAS STABLE O2 DC'D. BP SLOWLY CAME UP TO THE 90'S. SHE WILL START ON COMFORT CARE NOW. PPN WAS DC'D. SHE STARTED TO OPEN HER EYES ABOUT AN HOUR AFTER HER RETURN. SHE IS NONVERBAL. SHE WAS SCREAMING WHEN SHE LEFT TO GO TO DAY SURGERY. WENT HOME AFTER HE STAYED WITH HER FOR A SHORT TIME AFTER SHE RETURNED FROM DAY SURGERY.
--- NOTE | 2018-08-03 19:29 | NUR ---
COMFORT CARE INITIATED. MILLS PATENT. IT WAS INSERTED IN ER ON ADMISSION. SHE HAD SEVERE RETENTION. SHE APPEARS COMFORTABLE.
--- NOTE | 2018-08-03 19:44 | NUR ---
Transfer: Pt transferred to medical floor at approx 1344. VSS. Minimal changes in mentation. See shift assessment for detailed assessment. Pt transferred with belongings, medications and chart to medical floor.
--- NOTE | 2018-08-04 06:14 | NUR ---
SHIFT SUMMARY: COMFORT CARE SINCE START OF SHIFT. PT CRIES OUT VERY LOUD WITH MOST MOVEMENT AND DURING IV FLUSH/MEDS. TREATED 1X FOR PAIN WITH 10 MG PO ROXANOL. PT NONVERBAL, STARES BLANKLY AT CEILING, DOES NOT MAKE EYE CONTACT OR ANSWER QUESTIONS. Q2H TURNS T/O SHIFT. MILLS IS PATENT; DARK YELLOW URINE. RESPIRATIONS APPEAR EVEN AND UNLABORED. WILL CONT TO MONITOR AND PROVIDE CARE UNTIL PRESUMED BY ONCOMING RN.
--- NOTE | 2018-08-04 10:13 | NUR ---
Pt visit this AM. Pt resting in bed with her eyes closed and appears comfortable with a PAINAD score of 0/10. Spoke with Pt's nurse Yamil and he reports Pt was given 10mg of Roxinol this AM and is managing her pain. Recommend seizure medications be prescribed in [place] or elixer when she is discharged for comfort. Will remain available
--- NOTE | 2018-08-04 14:13 | NUR ---
Patient was sitting up in bed and alert. Parents and caregiver were present in the room. My attention were diverted by patient's father who enjoyed telling stories. I was able to have some contact with the patient and create enough space to encourage the family around areas of self-care, haelpful attitudes and practices and I provided prayer for the patient and family. Patient and family responded well to these interventions and showed signs of increased peace and an elevated mood.
--- NOTE | 2018-08-04 17:15 | NUR ---
SHIFT SUMMARY THE PATIENT IS A COMFORT CARE PATIENT. THE PATIENT HAS RECEIVED MORPHINE 3 TIMES DURING THE SHIFT. THE PATIENT'S SPOUSE IS IN THE ROOM WITH THE PATIENT AT THIS TIME, WILL CONTINUE TO MONITOR.
--- NOTE | 2018-08-05 06:09 | NUR ---
SHIFT SUMMARY: PT IS RECIEVING COMFORT CARE MEASURES. ADMINISTERED 10MG ROXANOL 2X THIS SHIFT FOR NONVERBAL INDICATORS OF PAIN. PT SCREAMS OUT IN PAIN WITH ANY MOVEMENT OR TOUCH SO THAT HAS BEEN REFRAINED FROM MAIN FOCUS IS COMFORT. AT BEDSIDE AT START OF SHIFT. WILL CONT TO MONITOR AND PROVIDE CARE UNTIL PRESUMED BY ONCOMING RN.
--- NOTE | 2018-08-05 11:15 | NUR ---
Pt visit this AM. Pt resting in bed with her eyes closed and appears comfortable. Gently spoke with Pt and gently rubbed her shoulder with no response. Respiration even and unlabored at this time. Spoke with Pt's nurse Yamil and he reports Pt's pain is managed with the Roxinol and has started giving atropine for secretions. No other concerns reported at this time. Will remain available
--- NOTE | 2018-08-05 17:07 | NUR ---
SHIFT SUMMARY THE PATIENT IN ON COMFORT CARE. THE PATIENT'S FAMILY HAS BEEN IN TO SEE THE PATIENT TODAY. THE PATIENT IS BEING MOVED TO ROOM #341 TO HELP PROVIDE A QUEITER SURROUNDINGS. THE PATIENT IS RESTING AT THIS TIME, WILL CONTINUE TO MONITOR.
--- NOTE | 2018-08-05 17:10 | NUR ---
Lengthy conversation with spouse, Jim, at bedside. He was quite expressive of his love for Anne, and responded well to emotional affirmation. 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 He appears to accept Anne's passing and states his abbi in God provdes him comfort. Anne appeared to be nearing end-of-life: breaths shallow with long pauses. She seems comfortable and well cared-for by nursing. she was non-responsive. Provided prayer for a peaceful transition at bedside. I will remain available.
--- NOTE | 2018-08-06 06:19 | NUR ---
SHIFT SUMMARY PT REPOSITIONED ORDERED. PT MEDICATED PER EMAR. PT DOES CRY OUT WHEN TURNED FOR REPOSITIONING OR ATTENDS CHANGE. PT NONVERBAL AND IS ONLY ALERT TO SELF. PT WAS WITH PT UNTIL LATE INTO THE EVENING. STATES HE WANTS TO CALLED IF THERES ANY SIGNS OF IMMINENT .
--- NOTE | 2018-08-06 07:06 | NUR ---
RN ASSUMED CARE OF PATIENT. PATIENT APPEARS TO BE RESTING COMFORTABLY. NO SIGNS OF PAIN OR DISTRESS. WILL CONTINUE TO MONITOR.
--- NOTE | 2018-08-06 09:59 | NUR ---
Pt visit this AM. Pt resting in bed with her eyes closed and appears comfortable. Gently spoke with Pt and offered therapeutic touch by rubbing her shoulder. Pt does not respond and keeps her eyes closed. No signs of distress at this time. Spoke with Pt's nurse Eliana and she reports no concerns. Will remain available
--- NOTE | 2018-08-06 15:36 | NUR ---
Anne was non-communicative, sleeping, and by all appearances comfortable and free of struggle. Her was present showing attention, love and concern. I provided inspirational encouragement, and gentle acoustic guitar music with soft baptism singing for comfort, peace and reassurance. Anne remained calm and stationary throughout. Her was engaged, appropriately emotional, and expressed gratitude.
--- NOTE | 2018-08-06 17:27 | NUR ---
PATIENT STARTED SCREAMING OUT WHEN ATTEMPTING TO REPOSITION. RN MEDICATED FOR PAIN PER EMAR. MILLS EMPTIED, CATH CARE COMPLETED. PATIENT APPEARS COMFORTABLE NOW. NO SIGNS OF ACUTE DISTRESS. RN WILL CONTINUE TO MONITOR.
--- NOTE | 2018-08-06 17:57 | NUR ---
SHIFT SUMMARY PATIENT REMAINS NONVERBAL. DOES CRY OUT AT TIMES WHEN BEING CHANGED AND REPOSITIONED. RN REPOSITIONED, CHANGED PER ORDERS. MEDICATED FOR PAIN X2 PER E MAR. AT BEDSIDE FOR SOME OF THE SHIFT. CATHETER CARE WAS COMPLETED. PATIENT IS CURRENTLY RESTING AND APPEARS COMFORTABLE. NO ACUTE SIGNS OF DISTRESS. RN WILL CONTINUE TO MONITOR.
--- NOTE | 2018-08-06 19:07 | NUR ---
Sat with Anne several times today when she was alone in room. She reacts when moved, but then calms fairly quickly. She appears comfortable. Breaths shallow, but relaxed and even. Provided prayer at bedside for a peaceful transition. [employer] services will remain available.
--- NOTE | 2018-08-07 06:08 | NUR ---
SHIFT SUMMARY PT ON CC NONVERBAL EXCEPT FOR WHEN MOVING/TURNING HER SHE CRIES OUT. MEDICATED PER EMAR FOR PAIN X1. PEACEFULLY RESTING T/O SHIFT.
--- NOTE | 2018-08-07 13:46 | NUR ---
Patient is alone in the room. She is breathing easily, shallowly. No s/s of distress noted, no family at bedside. Reviewed with nurse, Kinza. Will remain available.
--- NOTE | 2018-08-07 17:18 | NUR ---
SHIFT SUMMARY PT HAS HAD NO ACUTE CHANGES, MEDICATED PER MAR FOR PAIN, ONLY SHOWS SIGNS OF PAIN W/REPOSITIONS. SPOUSE SPENT AFTERNOON AT BEDSIDE, PT HAD BEDBATH THIS SHIFT, APPEARS TO BE RESTING COMFORTABLY, WILL CONT TO MONITOR UNTIL REPORT GIVEN TO NOC RN.
--- NOTE | 2018-08-08 04:50 | NUR ---
SHIFT SUMMARY NO CHANGES NOTED DURING THE NIGHT. WILL CONTINUE TO MONITOR.
--- NOTE | 2018-08-08 15:00 | NUR ---
Pt is resting comfortably. Meds reviewed. No needs at this time. Will remain available.
--- NOTE | 2018-08-08 16:35 | NUR ---
SHIFT SUMMARY PT HAS HAD NO ACUTE CHANGES THIS SHIFT, MEDICATED PER MAR FOR PAIN, SPOUSE SPENT MOST OF SHIFT AT BEDSIDE. PT APPEARS TO BE RESTING COMFORTABLY AT THIS TIME, WILL CONT TO MONITOR UNTIL REPORT GIVEN TO NOC RN.
--- NOTE | 2018-08-09 05:20 | NUR ---
NOTIFIED PER [employer] THAT PT HAS , TIME NOTED 514. HOSPITALIST NOTIFIED. FAMILY TO BE CALLED.
--- NOTE | 2018-08-09 05:27 | NUR ---
MESSAGES LEFT FOR BOTH SPOUSE AND DAUGHTER.
--- NOTE | 2018-08-09 07:40 | NUR ---
Called in at [facility] to be with spouse, Jim. We prayed together and I listened to stories. Jim reports peace and gratitude to [facility] staff. He has selected [facility] for arrangements.
== END 2018-08-09 05:15 | DRG 356 ==
LOC: ER 16:49 → MEDS 20:17 → PCU 20:17 → ERHOLD 20:17 → PCU 23:54 → MEDS 08-03 13:48 → ENPENDDIS 08-09 09:08
PROVIDERS: Emergency Medicine; Internal Medicine; Nurse Practitioner Acute Care; Student in an Organized Health Care Education/Training Program; ADMIT Hospitalist
PROC: 06H03DZ Insertion of Intraluminal Device into Inferior Vena Cava, Percutaneous Approach (ICD-10-PCS; principal; 2018-07-30)
PROC: 0DBP8ZX Excision of Rectum, Via Natural or Artificial Opening Endoscopic, Diagnostic (ICD-10-PCS; 2018-08-03)
PROC: 0DJ08ZZ Inspection of Upper Intestinal Tract, Via Natural or Artificial Opening Endoscopic (ICD-10-PCS; 2018-08-03 15:45)
DX: K92.1 Melena (principal); G93.41 Metabolic encephalopathy; N17.9 Acute kidney failure, unspecified; I82.412 Acute embolism and thrombosis of left femoral vein; E87.0 Hyperosmolality and hypernatremia; K62.6 Ulcer of anus and rectum; N13.30 Unspecified hydronephrosis; L89.152 Pressure ulcer of sacral region, stage 2; E83.39 Other disorders of phosphorus metabolism; G30.9 Alzheimer's disease, unspecified; F02.80 Dementia in other diseases classified elsewhere, unspecified severity, without behavioral disturbance, psychotic disturbance, mood disturbance, and anxiety; Z51.5 Encounter for palliative care; Z66 Do not resuscitate; G40.909 Epilepsy, unspecified, not intractable, without status epilepticus; R33.9 Retention of urine, unspecified; F17.210 Nicotine dependence, cigarettes, uncomplicated; E86.0 Dehydration; R00.1 Bradycardia, unspecified; R63.6 Underweight; N32.89 Other specified disorders of bladder; R60.0 Localized edema; D50.9 Iron deficiency anemia, unspecified; E87.6 Hypokalemia; S32.9XXD Fracture of unspecified parts of lumbosacral spine and pelvis, subsequent encounter for fracture with routine healing; W19.XXXD Unspecified fall, subsequent encounter; Z91.81 History of falling; K44.9 Diaphragmatic hernia without obstruction or gangrene; Z79.899 Other long term (current) drug therapy; Z79.1 Long term (current) use of non-steroidal anti-inflammatories (NSAID); Z88.0 Allergy status to penicillin; Z68.25 Body mass index [BMI] 25.0-25.9, adult
CPT/HCPCS: 36415; 37191; 51702; 70450; 71045; 74176; 80047; 80048; 80053; 80069; 80164; 81001; 82272; 82550; 82570; 82607; 82746; 82947; 83735; 84100; 84300; 85014; 85018; 85025; 85027; 85610; 85730; 86850; 86900; 86901; 87086; 88305; 93005; 93010; 93971; 95819; 96361; 96365; 96366; 96376; 99285-25; C1760; C1769; C1880; C1894; C9113; J0696; J1644; J1953; J2060; J3411; J3480; J7030; J7040; J7050; J7060; J7070; J7120; Q9967